=== PATIENT | female | born 1960 | race Caucasian/White ===

== ENCOUNTER 2019-09-15 10:57 | Emergency (ER) | payer OTHER ==
[~2019-09-15] VITALS: Ht 167.6 cm; Wt 63.5 kg
[2019-09-15 11:11] VITALS: BP 101/73
--- NOTE | 2019-09-15 11:39 | NUR ---
Patient awake alert C/C left foot pain non distress awaiting for MD
--- NOTE | 2019-09-15 13:56 | NUR ---
Patient discharged to home in stable condition. Written and verbal after care instructions given. Patient verbalizes understanding of instruction.
== END 2019-09-15 13:58 | disposition home or self-care (01) ==
LOC: ER 11:10
DX: M79.672 Pain in left foot (principal); R53.82 Chronic fatigue, unspecified
CPT/HCPCS: 73630-TC